=== PATIENT | female | born 1985 | race Caucasian/White ===

== ENCOUNTER 2017-03-09 12:31 | Emergency (ER) | payer BC, OTHER ==
[2017-03-09] MEDS ORDERED: traMADol 50 MG Tab ONE (12:40)
--- NOTE | 2017-03-09 12:40 | EDM.PDOC ---
ED HPI GENERAL MEDICAL PROBLEM - General Chief Complaint: Gastrointestinal Problem Stated Complaint: painful umbilical hernia Time Seen by Provider: 03/09/17 12:31 Source of Information: Reports: Patient History Limitations: Reports: No Limitations - History of Present Illness INITIAL COMMENTS - FREE TEXT/NARRATIVE: This is a 31yo F here for abdominal pain for the past 1 hour. Patient has had a hernia above the umbilicus since her last with mild episodes of pain but resolves quickly with rest and loser pants. This last episode has been constant 6/10 pain and the area has been non-reducible. Patient denies any nausea/vomiting, denies any current or prior issues with BM or blood in stools. No urinary concerns. Patient denies other complaints. Onset: Sudden Duration: Hour(s): Location: Reports: Abdomen Quality: Reports: Ache Severity: Moderate Improves with: Reports: None Worsens with: Reports: Movement Associated Symptoms: Reports: No Other Symptoms - Related Data Allergies Allergy/AdvReac Type Severity Reaction Status Date / Time No Known Allergies Allergy Verified 03/09/17 12:52 Home Meds: Home Meds NK [No Known Home Meds] 03/09/17 [History] ED ROS GENERAL - Review of Systems Review Of Systems: ROS reveals no pertinent complaints other than HPI. ED EXAM, GI/ABD - Physical Exam Exam: See Below Exam Limited By: No Limitations General Appearance: Alert, WD/WN, Mild Distress Eyes: Bilateral: EOMI Ears: Normal External Exam Nose: Normal Inspection Throat/Mouth: Normal Inspection Head: Atraumatic, Normocephalic Neck: Normal Inspection Respiratory/Chest: No Respiratory Distress, Lungs Clear Cardiovascular: Normal Peripheral Pulses, Regular Rate, Rhythm GI/Abdominal Exam: Tender, Hernia, Mass Back Exam: Normal Inspection Extremities: Normal Inspection Course - Orders/Labs/Meds Orders: Active Orders 24 hr Category Date Time Status Abdomen wo Cont [CT] Stat Exams 03/09/17 12:35 Taken Departure - Departure Time of Disposition: 16:27 Disposition: Home, Self-Care 01 Clinical Impression: Incarcerated epigastric hernia - Discharge Information Referrals: PCP,None [Primary Care Provider] - Forms: ED Department Discharge Additional Instructions: Present to ER at [facility]. Dr. Hadley will be the accepting physician. - My Orders Last 24 Hours: My Active Orders 03/09/17 12:35 Abdomen wo Cont [CT] Stat - Assessment/Plan Last 24 Hours: My Active Orders 03/09/17 12:35 Abdomen wo Cont [CT] Stat
--- NOTE | 2017-03-10 08:47 | CT ---
DATE OF SERVICE: 03/09/17 CLINICAL DATA: ventral hernia pain UNENHANCED ABDOMEN AND PELVIC CT: Multislice acquisition through the abdomen and pelvis without IV or oral contrast was performed. The lung bases are clear. There is a small hiatal hernia. The unenhanced liver appears normal. No focal hepatic lesions. The gallbladder appears normal. The spleen appears normal. The pancreas appears normal. The right and left adrenals appear normal. The right and left kidneys appear normal. No nephrocalcinosis or nephrolithiasis. No hydronephrosis or hydroureter. There is an umbilical hernia containing fat. There is also a supraumbilical ventral hernia located in the midline just above the umbilicus. It does contain a segment of small bowel. The herniated portion of bowel is mildly dilated and fluid-filled. There is fat stranding adjacent to it. No free air. No free fluid. No adenopathy. No aortic aneurysm. IMPRESSION: Supraumbilical ventral hernia containing a loop of small bowel. This loop of small bowel is dilated and fluid-filled. There is also adjacent fat stranding. A strangulated hernia with obstruction is suspected. Surgical consultation is recommended. The patient's physician was notified of the findings by [facility] preliminary radiology report. [id number] MTDD
== END 2017-03-09 13:30 | disposition home or self-care (01) ==
LOC: LB.ED 12:31
DX: K43.6 Other and unspecified ventral hernia with obstruction, without gangrene (principal)
CPT/HCPCS: 74150; 99283; A9270